=== PATIENT | male | born 1985 | race Caucasian/White ===

== ENCOUNTER 2022-08-24 15:12 | Outpatient (CLI) | payer OTHER, SELFPAY | END 2022-08-24 15:13 | disposition home or self-care (01) | PROVIDERS: Visit Provider Family Medicine | DX: Z00.00 Encounter for general adult medical examination without abnormal findings (principal); Z13.6 Encounter for screening for cardiovascular disorders; R06.83 Snoring | CPT/HCPCS: 80053; 80061 ==

== ENCOUNTER 2022-12-04 19:36 | Outpatient (CLI) | payer OTHER, SELFPAY ==
--- NOTE | 2022-12-13 08:31 | W.PM.SLEEP ---
Sleep Study Details Details Interpreting Provider: Tyrone Date of Sleep Study: 12/04/22 Sleep Study Details: STUDY TYPE:? Home unattended ? BMI:? 31.6 ORDERING PROVIDER:Lance Garcia INDICATION:? Concerns about sleep apnea ? SLEEP SUMMARY:? 400 minutes monitored RESPIRATORY SUMMARY:? AHI is 9.9, supine 41.6, left lateral 5.1, right lateral 4.2 Low oxygen 84 38.3% of study oxygen less than 90% Snoring 8.3% PERIODIC LIMB MOVEMENTS OF SLEEP:? Not recorded during home study CARDIAC:? Range 52-109, mean 64 beats per minute IMPRESSION:? Mild obstructive sleep apnea overall with severe apnea in the supine position Significant hypoxemia noted during study. RECOMMENDATION: Treatment options would include positional therapy, CPAP AutoSet 4-17, dental appliance. Once effective therapy is established repeat overnight oximetry should be performed. If oxygenation remains low further cardiopulmonary evaluation may be indicated.
== END 2022-12-04 19:37 | disposition home or self-care (01) ==
PROVIDERS: Visit Provider Family Medicine
DX: G47.33 Obstructive sleep apnea (adult) (pediatric) (principal)
CPT/HCPCS: 95806

== ENCOUNTER 2023-11-22 14:12 | Outpatient (CLI) | payer OTHER, SELFPAY | END 2023-11-22 14:13 | disposition home or self-care (01) | PROVIDERS: PCP Family Medicine; Visit Provider Family Medicine | DX: Z00.00 Encounter for general adult medical examination without abnormal findings (principal); R73.09 Other abnormal glucose | CPT/HCPCS: 80053; 80061; 86803 ==

== ENCOUNTER 2023-12-03 15:31 | Outpatient (CLI) | payer OTHER, SELFPAY ==
--- NOTE | 2023-12-03 16:00 | CRLHL7_ITS ---
For Patients: As a result of the Century Cures Act, medical imaging exams and procedure reports are released immediately into your electronic medical record. You may view this report before your referring provider. If you have questions, please contact your health care provider. INDICATION: Pulmonary fibrosis. TECHNIQUE: CT chest with 75 mL Isovue 370 IV contrast. COMPARISON: None FINDINGS: Lungs and pleura: No evidence for pulmonary fibrosis. No reticulation or ground-glass. Benign calcified granuloma in the right middle lobe. Lungs are otherwise clear. Heart and vasculature: Heart size is normal. Thoracic aorta and pulmonary artery are normal in caliber. Lymph nodes/mediastinum: No mediastinal, hilar, or axillary adenopathy. Thyroid gland is normal. Chest wall: No masses. Upper abdomen: Normal. Bones: Unremarkable for age. IMPRESSION: Normal chest CT. No evidence for interstitial pulmonary fibrosis. Please note that all CT scans at this facility use dose modulation, iterative reconstruction, and/or weight-based dosing when appropriate to reduce radiation dose to as low as reasonably achievable. Dictated by Giovani Escalante MD @ 12/05/2023 8:28:52 AM (Electronically Signed)
== END 2023-12-03 15:32 | disposition home or self-care (01) ==
LOC: CT 15:33
PROVIDERS: PCP Family Medicine; Visit Provider Family Medicine
DX: J84.10 Pulmonary fibrosis, unspecified (principal)
CPT/HCPCS: 71260; Q9967

== ENCOUNTER 2024-10-22 08:01 | Outpatient (CLI) | payer OTHER, SELFPAY ==
[2024-10-25 07:47] LABS: Calculi Mass 25 mg
== END 2024-10-22 08:02 | disposition home or self-care (01) ==
LOC: FRMREF 08:02
PROVIDERS: PCP Family Medicine; Visit Provider Physician Assistant Medical
DX: Z00.00 Encounter for general adult medical examination without abnormal findings (principal); Z87.442 Personal history of urinary calculi; Z13.228 Encounter for screening for other metabolic disorders; Z13.6 Encounter for screening for cardiovascular disorders; Z13.29 Encounter for screening for other suspected endocrine disorder; Z13.828 Encounter for screening for other musculoskeletal disorder
CPT/HCPCS: 80053; 80061; 82365; 84443; 84550

== ENCOUNTER 2024-11-30 09:38 | Emergency (ER) | payer OTHER, SELFPAY ==
[2024-11-30 09:42] VITALS: BP 143/96; PULSE 65; RESP 18; TEMP 36.3; O2SAT 96; BMI 32.4
--- NOTE | 2024-11-30 09:55 | ED.BACK ---
HPI - Back Pain/Injury General Time Seen by Provider: 09:56 Date Seen: 11/30/24 Chief Complaint: Back Injury/Pain Stated Complaint: back pain Time Seen by Provider: 11/30/24 09:55 Source: patient and RN notes reviewed Mode of arrival: ambulatory Limitations: no limitations History of Present Illness HPI Narrative: Patient is a very pleasant 39-year-old gentleman history of kidney stones and gout who comes to the emergency room for evaluation of low back pain. Patient notes that he had been working on [employer] throughout the day but had been feeling well and did not recall any injury on SundayNovember 28. That evening at approximately 1900 hours after the work had been done he was trying to get out of a chair and had this sudden onset of low back pain any had to sit back down. Fortunately that has continued in spite of use of Tylenol. The pain is across his low back on both sides. It is not associated with any leg discomfort loss of bowel or bladder control. He has had back pain in the past but this is a lot worse and he is rating his pain an 8/10 today. Denies any other major medical problems. Bending forward especially increases his discomfort. 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 - Pulmonary fibrosis, unspecified (ICD-10) Sleep apnea ?G47.30 - Sleep apnea, unspecified (ICD-10) Calculus of kidney ?N20.0 - Calculus of kidney (ICD-10) Family History Father Brain tumor Maternal Grandmother Diabetes Grandfather High cholesterol Social History What is your current living situation?: I presently have a place to live In the past 12 months, utilities in danger of being shut off: no In past 12 months, lack of transportation kept you from medical appts, meetings, work, or getting things needed for daily living: no In the past 12 mos, have been you worried that your food would run out before you had money to buy more?: never true In the past 12 mos, the food you bought just didn't last and you didn't have money to buy more?: never true Smoking Status: Never smoker How often do you have a drink containing alcohol: never AUDIT-C Alcohol total score: 0 Non-prescribed substance use: denies use How often does anyone, including family, friends and others, physically hurt you: never How often does anyone, including family, friends and others, insult or talk down to you: never How often does anyone, including family, friends and others, threaten you with harm: never How often does anyone, including family, friends and others, scream or curse at you: never Exam Narrative: Exam Narrative: Alert and oriented. Standing in room 2. No respiratory distress. Examination of patient's back shows no unusual rashes. No point tenderness noted, no evidence of ecchymosis. Forward flexion is to only about 10-15 degrees in returning to upright position increases discomfort. Extension does not cause any discomfort. He is able to stand on his tiptoes and stand on his heels. Able to ambulate. Lower extremity without evidence of edema. Const: Vital Signs, click to edit/add: Vital Signs - 24 hr 11/30/24 09:42 Temperature 97.4 F L Pulse Rate [Pulse Oximeter] 65 Respiratory Rate 18 Blood Pressure [Ri ght Upper Arm] 143/96 H Pulse Oximetry 96 Oxygen Delivery Me thod Room Air Course Course ED Course: Differential diagnosis includes but is not limited to low back strain, disc herniation, compression fracture. At this time patient has no history of major medical illness, cancer, recent trauma. Most importantly he is absent of any red flag symptoms. 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 Will do a trial of Toradol 30 mg IM and morphine mg IM. I do not feel the need for radiological assessment giving patient's description of pain and exam today. Vital Signs Vital signs: Initial Vital Signs Temperature 97.4 F L 11/30/24 09:42 Temperature Source Temporal Artery Scan 11/30/24 09:42 Pulse Rate 65 11/30/24 09:42 Respiratory Rate 18 11/30/24 09:42 Blood Pressure 143/96 H 11/30/24 09:42 Blood Pressure Mean 111 H 11/30/24 09:42 Blood Pressure Position Sitting 11/30/24 09:42 Pulse Oximetry 96 11/30/24 09:42 Oxygen Delivery Method Room Air 11/30/24 09:42 Vital Signs Temperature 97.4 F L 11/30/24 09:42 Pulse Rate 65 11/30/24 09:42 Respiratory Rate 18 11/30/24 09:42 Blood Pressure 143/96 H 11/30/24 09:42 Pulse Oximetry 96 11/30/24 09:42 Oxygen Delivery Method Room Air 11/30/24 09:42 Temperature 97.4 F L 11/30/24 09:42 Pulse Rate 65 11/30/24 09:42 Respiratory Rate 18 11/30/24 09:42 Blood Pressure 143/96 H 11/30/24 09:42 Pulse Oximetry 96 11/30/24 09:42 Oxygen Delivery Method Room Air 11/30/24 09:42 Medications Administered Medications: Discontinued Medications Generic Name Dose Route Start Last Admin Trade Name Ryanq PRN Reason Stop Dose Admin Ketorolac Tromethamine 30 mg 11/30/24 10:04 11/30/24 10:12 Ketorolac 30 Mg/Ml Inj IM 11/30/24 10:05 30 mg ONCE ONE Administration Morphine Sulfate 5 mg 11/30/24 10:04 11/30/24 10:12 Morphine 10 Mg/Ml Inj IM 11/30/24 10:05 5 mg ONCE ONE Administration MDM - Back Pain/Injury MDM Narrative Medical decision making narrative: 1. Low back strain-recommend Aleve 1-2 tablets every 12 hours as needed for back pain. Should not lead this longer than 5 days. Recommend icing to the back not on bare skin. Recommend gentle movement. Have created a therapy referral form for him to use if he wants to do physical therapy which I highly recommend if he is not 100% better in the next week. Flexeril may be used 10 mg p.o. t.i.d. p.r.n. Number 30 via instant meds machine but should not be used with other sedating medications or alcohol and [address] on this medication. 2. Disposition-Return for red flag symptoms especially worsening pain, loss of bowel or bladder control, leg pain and as needed. Medical Records Attestation: I reviewed the patient's medical records. Discharge Plan Discharge Clinical Impression: Low back pain Qualifiers: Chronicity: acute Back pain laterality: bilateral Sciatica presence: without sciatica Qualified Code(s): M54.50 - Low back pain, unspecified Patient Disposition: Home, Self-Care Condition: Improved Instructions: Acute Low Back Pain (ED) Additional Instructions: Today you received a narcotic pain medication called morphine and an anti-inflammatory/pain medicine called Toradol in the ER. At home you may start using Aleve also known as naproxen, 1-2 tablets every 12 hours as needed for discomfort. You should only need to do this for the next 5 days. Only take if needed. A 2nd medication called Flexeril is available to you in our vending machine in the front lobby or if per for I consented to your pharmacy. This is a muscle relaxer. You should not use any other sedating medications such as sleep meds, alcohol with this medicine in you should not drive if you need to use it. This should help with any muscle spasm you are experiencing. A physical therapy referral is sent to the [facility] for [facility] physical therapy for you to use if needed. When 1 experiences of back injury the musculature can week in and predispose you to a tendency for future injuries. Specific stretches and exercises will help prevent this. The phone number is [phone]. Return/seek medical attention for worsening symptoms especially loss of bowel or bladder control, worsening leg pain and onset of new symptoms. Prescriptions: No Action No Known Home Medications Follow Up/Referrals: Juana Garcia MD [Primary Care Provider, Family Practice] Stand Alone Forms: [employer] Info Instructions
--- OUTSIDE RECORDS SUMMARY | 2024-11-30 09:55 | XMS_ITS | Clinical Summary ---
Author Organization [employer] Address [address] [place] [id number] Care Team Providers Care Cascade Operator Name Role Phone Pcp, No Primary Care Provider Unavailabl e Allergies No known active allergies Medications benzonatate (TESSALON) 200 mg capsuleIndicatio ns:Acute bacterial pharyngitis Take 1 capsule by mouth 3 times daily if needed for Cough. 30 capsule 1 11/25/2015 Active Social History Tobacco Use Types Packs/Day Years Used Date Smoking Tobacco: Never Smokeless Tobacco: Never Alcohol Use Standard Drinks/Week Comments Yes 0 (1 standard drink = 0.6 oz pur e alcohol) Sex and Gender Information Value Date Recorded Sex Assigned at Not on file Legal Sex Male 8:17 PM CDT Gender Identity Not on file Sexual Orientation Not on file Obstetrics History Plan of Treatment Health Maintenance Due Date Last Done Comments (IA) Tdap 1998 Depression screening for age 12+ 1999 HIV for age 15-65 2002 BMI (ht and wt on same day) for age 18+ 2005 Hepatitis C screening for ag e 18-79 2005 Hepatitis B series for 19+ ( 1 of 3 - 19+ 3-dose series) 2006 Tetanus booster 2007 Lipids for age 35-44 2022 COVID-19 vaccine series ( - 2023- season) 2024 Influenza Vaccine (Season Ended) 2025 Pneumococcal series for age 6-49 Aged Out No longer eligible based on patient's age to complete this topic Insurance [place] [address] Care Teams Cascade Operator Relationship Specialty Start Date End Date Pcp, No . PCP - General 01/31/14
== END 2024-11-30 10:30 | disposition home or self-care (01) ==
PROVIDERS: Emergency Provider Family Medicine; PCP Family Medicine
DX: S39.012A Strain of muscle, fascia and tendon of lower back, initial encounter (principal); Y93.H2 Activity, gardening and landscaping
CPT/HCPCS: 96372; 99283; 99284; J1885; J2270

== ENCOUNTER 2024-12-09 14:41 | Outpatient (RCR) | payer OTHER, SELFPAY | END 2025-02-23 10:35 | disposition home or self-care (01) | PROVIDERS: PCP Family Medicine; Visit Provider Family Medicine | DX: S39.012D Strain of muscle, fascia and tendon of lower back, subsequent encounter (principal); Z51.89 Encounter for other specified aftercare | CPT/HCPCS: 97110; 97161 ==